=== PATIENT | female | born 2000 | race Two or more races ===

== ENCOUNTER 2021-02-02 15:50 | Emergency (ER) | payer MEDICAID, OTHER ==
[~2021-02-02] VITALS: Ht 160 cm; Wt 75.0 kg
[2021-02-02 16:10] VITALS: BP 118/91
--- NOTE | 2021-02-02 16:20 | NUR ---
PT AMBULATED TO ROOM FROM TRIAGE. PT CO SMALL BURN ON BACK OF LEFT ANKLE. WOUND LOOKS LIKE IT IS HEALING, NO SIGNS OF INFECTION.
[2021-02-02] MEDS ORDERED: NEOSPORIN OINT. PKT 1 PACKET ONE (16:33)
--- NOTE | 2021-02-02 16:52 | NUR ---
DISCHARGE INSTRUCTIONS REVIEWED WITH PT. ALL QUESTIONS ANSWERED AT THIS TIME.
== END 2021-02-02 16:54 | disposition home or self-care (01) ==
LOC: ED 16:45
DX: T24.202A Burn of second degree of unspecified site of left lower limb, except ankle and foot, initial encounter (principal); T31.0 Burns involving less than 10% of body surface; X08.8XXA Exposure to other specified smoke, fire and flames, initial encounter; Y93.89 Activity, other specified; Y92.69 Other specified industrial and construction area as the place of occurrence of the external cause; Y99.8 Other external cause status
CPT/HCPCS: 16020; 99282